=== PATIENT | female | born 1980 | race Two or more races ===

== ENCOUNTER 2024-01-04 17:49 | Outpatient (CLI) | payer OTHER ==
[~2024-01-04] VITALS: Ht 162.6 cm; Wt 113.4 kg
[2024-01-04 16:47] VITALS: BP 128/74
[2024-01-04] MEDS ORDERED: LABETALOL HCL 200 MG TABLET PO SCH (18:02)
[2024-01-04] MEDS ORDERED: RINGERS SOLUTION,LACTATED 1,000 ML IV SCH (18:15)
[2024-01-04] MEDS ORDERED: INTEGRA PLUS C1 EACH PO (19:32)
[2024-01-04] MEDS ORDERED: PRENATAL TABLE1 EAC1 PO (19:33)
[2024-01-04] MEDS ORDERED: LABETALOL HCL200 MG PO (19:33)
[2024-01-04 20:49] VITALS: BP 135/80; O2SAT 99
[2024-01-04 23:30] VITALS: BP 136/83
[2024-01-05 03:04] VITALS: BP 140/81
[2024-01-05 09:40] VITALS: BP 124/66
== END 2024-01-05 10:05 | disposition home or self-care (01) ==
LOC: OBS/DEL 17:49
PROVIDERS: ATTEND Obstetrics & Gynecology
DX: O16.2 Unspecified maternal hypertension, second trimester (principal); Z3A.23 23 weeks gestation of pregnancy

== ENCOUNTER 2024-03-03 11:56 | Outpatient (CLI) | payer OTHER | END 2024-03-03 11:57 | disposition home or self-care (01) | LOC: SONOGRAMA 11:56 | PROVIDERS: ATTEND Obstetrics & Gynecology Maternal & Fetal Medicine | DX: N64.0 Fissure and fistula of nipple (principal) ==

== ENCOUNTER → 2024-03-03 | Outpatient (CLI) | payer OTHER ==
[~2024-03-03] MED LIST: INTEGRA PLUS C1 EACH PO; LABETALOL HCL200 MG PO; PRENATAL TABLE1 EAC1 PO
== END | disposition home or self-care (01) ==
LOC: NST 10:56
PROVIDERS: ATTEND Obstetrics & Gynecology Maternal & Fetal Medicine
DX: Z34.83 Encounter for supervision of other normal pregnancy, third trimester (principal)

== ENCOUNTER 2024-03-09 17:34 | Emergency (ER) | payer OTHER ==
[~2024-03-09] VITALS: Ht 162.6 cm; Wt 117.9 kg
[2024-03-09] MEDS ORDERED: DEXAMETHASONE SODIUM PHOSPHATE 4 MG/ML VIAL IM ONE (19:45)
[2024-03-09] MEDS ORDERED: AZITHROMYCIN 500 MG TABLET PO ONE (19:45)
[2024-03-09] MEDS ORDERED: HYDROCODONE/CHLORPHEN P-STIREX 5 ML ML PO ONE (19:45)
[2024-03-09 19:59] LABS: HEMATOCRIT 28.1 % (36.0-45.00); HEMOGLOBIN 9.3 g/dL (12.0-15.00); MEAN CELL VOLUME 80.9 fL (80.00-100.00); MEAN CORPUSCULAR HEMOGLOBIN 26.7 pg (27.00-32.0); MEAN CORPUSCULAR HGB CONC 33.1 g/dl (32.0-36.0); PLATELET COUNT 361 K/uL (150-450); RED BLOOD COUNT 3.48 M/uL (4.00-6.00); RED CELL DISTRIBUTION WIDTH 15.1 % (11.5-14.5)
[2024-03-09] MEDS ORDERED: ZITHROMAX500 MG PO (20:51)
[2024-03-09] MEDS ORDERED: XOPENEX CO1.25 MG/0. IH (20:51)
[2024-03-09] MEDS ORDERED: TUSSIN100 MG/51 PO (20:51)
== END 2024-03-09 20:54 | disposition home or self-care (01) ==
LOC: ER 17:36
PROVIDERS: General Practice
DX: R05.9 Cough, unspecified (principal); M54.9 Dorsalgia, unspecified; Z20.822 Contact with and (suspected) exposure to COVID-19

== ENCOUNTER 2024-03-11 11:46 | Inpatient (IN) | payer OTHER ==
[~2024-03-11] VITALS: Ht 162.6 cm; Wt 117.9 kg
[~2024-03-11 11:46] MED LIST changes: +TUSSIN100 MG/51 PO; +XOPENEX CO1.25 MG/0. IH; +ZITHROMAX500 MG PO
--- NOTE | 2024-03-11 12:08 | NUR ---
PACIENTE FEMENINA ALERTA Y ORIENTADA X3, REFIERE DIFICULTAD AL RESPIRAR AL MOEMNTO DEL TRIAGE MOE O2 ES 97%, TIENE 33 SEMANAS DE EMBARAZO Y MOE GINECOLOGO ES .
[2024-03-11] MEDS ORDERED: LEVALBUTEROL HCL 1.25 MG/3 ML SOLUTION IH STA (14:54)
--- NOTE | 2024-03-11 15:24 | NUR ---
SE EDUCA A PTE SOBRE TX A RECIBIR EN EL AREA LA MISMA REFIERE ENTENDER. SE LLAMA A PERSONAL DE TERAPIA RESPIRATORIA CUAL RUVALCABA REFIERE ESTAR NOTIFICADO. SE REALIZAN MUESTRAS DE LAB Y SE ENVIAN DE FORMA INMEDIATA. SE NABIL COLECTOR DE ORINA A PTE Y SE EDUCA SOBRE ENTREGAR EL MISMO. SE REALIZAN VITALES POR RESPIRACION DE PACIENTE, SATURACION 97%.
[2024-03-11 15:27] LABS: HEMATOCRIT 28.7 % (36.0-45.00); HEMOGLOBIN 9.2 g/dL (12.0-15.00); MEAN CELL VOLUME 80.4 fL (80.00-100.00); MEAN CORPUSCULAR HEMOGLOBIN 25.9 pg (27.00-32.0); MEAN CORPUSCULAR HGB CONC 32.2 g/dl (32.0-36.0); PLATELET COUNT 360 K/uL (150-450); RED BLOOD COUNT 3.57 M/uL (4.00-6.00); RED CELL DISTRIBUTION WIDTH 15.6 % (11.5-14.5)
[2024-03-11 16:27] LABS: URINE APPEARANCE Clear; URINE BILIRRUBIN Negative (NEGATIVE); URINE BLOOD Negative; URINE COLOR Yellow; URINE GLUCOSE Negative (NEGATIVE); URINE KETONE Negative (NEGATIVE); URINE LEUKOCYTE Moderate; URINE NITRATE Negative; URINE PROTEIN 30 (NEGATIVE); URINE UROBILINOGEN 0.2 E.U./dl
[2024-03-11 16:31] LABS: URINE EPITHELIAL CELLS 30.7 uL (0.0-38.8); URINE RBC 2.6 uL (0.0-20.8); URINE WBC 377.2 uL (0.0-23.2)
[2024-03-11 17:01] LABS: URINE CAST 0.44 uL (0.0-1.40)
[2024-03-11] MEDS ORDERED: CEPHALEXIN500 M1 PO (17:50)
[2024-03-13 02:12] VITALS: BP 158/98
[2024-03-13] MEDS ORDERED: MAGNESIUM SULFATE IN WATER 4 GM/100 ML PIGGYBACK IV SCH (02:45)
[2024-03-13] MEDS ORDERED: LABETALOL HCL 20MG/4ML SYRINGE IV ONE (02:45)
[2024-03-13] MEDS ORDERED: MAGNESIUM SULFATE IN WATER 0.04 GM/ML IV.SOLN IV SCH (02:45)
[2024-03-13 03:13] LABS: HEMATOCRIT 28.6 % (36.0-45.00); HEMOGLOBIN 9.5 g/dL (12.0-15.00); MEAN CELL VOLUME 78.9 fL (80.00-100.00); MEAN CORPUSCULAR HEMOGLOBIN 26.1 pg (27.00-32.0); PLATELET COUNT 380 K/uL (150-450); RED BLOOD COUNT 3.63 M/uL (4.00-6.00); RED CELL DISTRIBUTION WIDTH 15.4 % (11.5-14.5)
[2024-03-13] MEDS ORDERED: AMPICILLIN SODIUM 2,000 MG VIAL IV ONE (03:30)
[2024-03-13] MEDS ORDERED: RINGERS SOLUTION,LACTATED 1,000 ML IV SCH (03:30)
[2024-03-13] MEDS ORDERED: MAGNESIUM SULFATE IN WATER 500 ML IV SCH (03:30)
[2024-03-13 03:31] LABS: INR 0.96; PARTIAL THROMBOPLASTIN TIME 28.7 SECONDS (22.0-34.0); PROTHROMBIN TIME 10.5 SECONDS (9.0-11.5)
[2024-03-13 03:36] LABS: ALBUMIN 2.4 gm/dL (3.4-5.0); BILIRUBIN TOTAL 0.35 mg/dL (0.3-1.2); CALCIUM 8.5 mg/dL (8.5-10.1); CREATININE SERUM 0.63 mg/dL (0.55-1.02); GFR 103.14; POTASSIUM 3.81 mEq/L (3.5-5.1); TOTAL PROTEIN 6.4 gm/dL (6.4-8.2)
[2024-03-13] MEDS ORDERED: INTEGRA F CAPS1 EACH PO (03:41)
[2024-03-13] MEDS ORDERED: LABETALOL HCL100 MG PO (03:41)
[2024-03-13] MEDS ORDERED: PROAIR RESPICL90 MCG IH (03:42)
[2024-03-13] MEDS ORDERED: AZITHROMYCIN500 MG PO (03:42)
[2024-03-13 03:43] LABS: PH,URINE 6.5 (5.0-8.0); URINE APPEARANCE Clear; URINE BILIRRUBIN Negative (NEGATIVE); URINE BLOOD Large; URINE COLOR Yellow; URINE GLUCOSE Negative (NEGATIVE); URINE KETONE Negative (NEGATIVE); URINE LEUKOCYTE Trace; URINE NITRATE Negative; URINE PROTEIN Negative (NEGATIVE); URINE UROBILINOGEN 0.2 E.U./dl
[2024-03-13] MEDS ORDERED: PRENATA CHEWAB1 EACH PO (03:44)
[2024-03-13] MEDS ORDERED: MORPHINE SULFATE 4 MG/ML CARTRIDGE IV PRN (03:45)
[2024-03-13 03:46] LABS: URINE BACTERIA 111.3 uL (0.0-1933); URINE EPITHELIAL CELLS 16.7 uL (0.0-38.8); URINE RBC 81.7 uL (0.0-20.8); URINE WBC 27.8 uL (0.0-23.2)
[2024-03-13 03:48] LABS: URINE CAST 0.73 uL (0.0-1.40)
[2024-03-13 06:02] LABS: ABG PO2 82.6 mmHg (80-100); ABG pCO2 27.7 mmHg (35-45); SaO2 96.5 %
[2024-03-13 06:03] LABS: BASE EXCESS -3.6 mmol/l; BICARBONATE 18.8 mmol/l (23-25); Tco2 19.7 mmol/l; allen test SATISFACTORY; o2 21 %; puncture site RADIAL LEFT
[2024-03-13 06:13] VITALS: BP 138/76; O2SAT 99
[2024-03-13 07:51] VITALS: O2SAT 100
[2024-03-13] MEDS ORDERED: AMPICILLIN SODIUM 1,000 MG VIAL IV SCH (08:00)
[2024-03-13] MEDS ORDERED: AZITHROMYCIN 500 MG VIAL IV NR (09:00)
[2024-03-13] MEDS ORDERED: BETAMETHASONE ACETATE,SOD PHOS 30 MG/5 ML ML IM SCH (09:00)
[2024-03-13] MEDS ORDERED: [UNRECOGNIZED DRUG - OTHER] (09:22)
[2024-03-13 10:55] VITALS: BP 158/90; O2SAT 97
[2024-03-13] MEDS ORDERED: GUAIFENESIN 200 MG/10 ML BLIST.PACK PO SCH (12:00)
[2024-03-13 15:42] VITALS: BP 142/88
[2024-03-13] MEDS ORDERED: CEFTRIAXONE SODIUM 2,000 MG VIAL IV STA (17:45)
[2024-03-13] MEDS ORDERED: LEVALBUTEROL HCL 0.63 MG/3 ML SOLUTION IH SCH (18:37)
[2024-03-13 20:00] VITALS: BP 160/92
[2024-03-13] MEDS ORDERED: LABETALOL HCL 200 MG TABLET PO SCH (23:16)
[2024-03-14] VITALS (7 sets, daily range): BP systolic 110–154; BP diastolic 72–91; O2SAT 96–100
[2024-03-14] MEDS ORDERED: SOD FERRIC GLUC COMPLX/SUCROSE 125 MG in 0.9 % SODIUM CHLORIDE 100 ML IV SCH (07:44)
[2024-03-14] MEDS ORDERED: METRONIDAZOLE/SODIUM CHLORIDE 100 ML IV SCH (17:00)
[2024-03-14] MEDS ORDERED: CEFTRIAXONE SODIUM 2,000 MG VIAL IV SCH (17:00)
[2024-03-14] MEDS ORDERED: AZITHROMYCIN 500 MG VIAL IV SCH (17:00)
[2024-03-14 19:11] LABS: HEMATOCRIT 29.2 % (36.0-45.00); HEMOGLOBIN 9.5 g/dL (12.0-15.00); MEAN CELL VOLUME 80.7 fL (80.00-100.00); MEAN CORPUSCULAR HEMOGLOBIN 26.2 pg (27.00-32.0); MEAN CORPUSCULAR HGB CONC 32.5 g/dl (32.0-36.0); PLATELET COUNT 464 K/uL (150-450); RED BLOOD COUNT 3.62 M/uL (4.00-6.00); RED CELL DISTRIBUTION WIDTH 15.2 % (11.5-14.5)
[2024-03-14 19:13] LABS: URINE APPEARANCE Clear; URINE BILIRRUBIN Negative (NEGATIVE); URINE BLOOD Negative; URINE COLOR Yellow; URINE GLUCOSE Negative (NEGATIVE); URINE KETONE Negative (NEGATIVE); URINE LEUKOCYTE Negative; URINE NITRATE Negative; URINE PROTEIN Negative (NEGATIVE); URINE UROBILINOGEN 0.2 E.U./dl
[2024-03-14 19:17] LABS: URINE EPITHELIAL CELLS 2.5 uL (0.0-38.8); URINE RBC 3.3 uL (0.0-20.8)
[2024-03-14 19:36] LABS: URINE BACTERIA 3.6 uL (0.0-1933); URINE CAST 0.14 uL (0.0-1.40); URINE WBC 0.6 uL (0.0-23.2)
[2024-03-14 19:41] LABS: ALBUMIN 2.5 gm/dL (3.4-5.0); BILIRUBIN TOTAL 0.16 mg/dL (0.3-1.2); CALCIUM 7.8 mg/dL (8.5-10.1); CREATININE SERUM 0.73 mg/dL (0.55-1.02); GFR 87.01; GLOBULINA 4.2 G/DL (2.4-3.5); POTASSIUM 4.45 mEq/L (3.5-5.1); TOTAL PROTEIN 6.7 gm/dL (6.4-8.2); URIC ACID 6.4 mg/dL (2.5-7.5)
[2024-03-14] MEDS ORDERED: hydrOXYzine PAMOATE 50 MG CAPSULE PO ONE (21:15)
[2024-03-15] MEDS ORDERED: LABETALOL HCL 100 MG/20 ML ML IV PUSH ONE ×2 (03:15→17:15)
[2024-03-15 06:11] LABS: PH,URINE 5.5 (5.0-8.0); URINE APPEARANCE Clear; URINE BILIRRUBIN Negative (NEGATIVE); URINE BLOOD Negative; URINE COLOR Yellow; URINE GLUCOSE Negative (NEGATIVE); URINE KETONE Negative (NEGATIVE); URINE LEUKOCYTE Negative; URINE NITRATE Negative; URINE PROTEIN 30 (NEGATIVE)
[2024-03-15 06:14] LABS: URINE BACTERIA 7.3 uL (0.0-1933); URINE CAST 3.53 uL (0.0-1.40); URINE EPITHELIAL CELLS 12.8 uL (0.0-38.8); URINE RBC 28.7 uL (0.0-20.8); URINE WBC 6.3 uL (0.0-23.2)
[2024-03-15 06:15] VITALS: BP 143/96; O2SAT 97
[2024-03-15] MEDS ORDERED: CEFAZOLIN SODIUM 1,000 MG VIAL IV SCH (08:30)
[2024-03-15 11:12] VITALS: BP 143/84
[2024-03-15] MEDS ORDERED: MORPHINE SULFATE 4 MG/ML VIAL IV PRN (16:45)
[2024-03-15] MEDS ORDERED: MAGNESIUM SULFATE IN WATER 500 ML IV SCH (16:45)
[2024-03-15] MEDS ORDERED: MORPHINE SULFATE 4 MG/ML VIAL IV ONE ×2 (17:15→17:45)
[2024-03-15] MEDS ORDERED: hydrALAZINE HCL 25 MG TABLET PO SCH (17:37)
[2024-03-15] MEDS ORDERED: CLEVIDIPINE BUTYRATE 100 ML IV SCH (17:45)
[2024-03-15] MEDS ORDERED: KETOROLAC TROMETHAMINE 30 MG VIAL IV SCH (18:00)
[2024-03-15] MEDS ORDERED: KETOROLAC TROMETHAMINE 30 MG VIAL IV ONE (18:15)
[2024-03-15] MEDS ORDERED: LOSARTAN POTASSIUM 25 MG TABLET PO SCH (21:17)
[2024-03-16] MEDS ORDERED: METOPROLOL SUCCINATE 25 MG TAB.SR.24H PO SCH (09:00)
[2024-03-16 09:17] VITALS: BP 143/82; O2SAT 99
[2024-03-16 11:03] VITALS: BP 143/80; O2SAT 100
[2024-03-16 15:45] VITALS: BP 148/80; O2SAT 98
[2024-03-16] MEDS ORDERED: ERYTHROMYCIN BASE OPHT 1GM EACH TUBE OP ONE (15:45)
[2024-03-16] MEDS ORDERED: OXYTOCIN 10 UNITS/ML VIAL IV ONE (15:45)
[2024-03-16] MEDS ORDERED: ENOXAPARIN SODIUM 40 MG/0.4 ML SYRINGE SUBCUTANEO SCH (17:00)
[2024-03-16 19:43] LABS: PH,URINE 5.5 (5.0-8.0); URINE APPEARANCE Clear; URINE BILIRRUBIN Negative (NEGATIVE); URINE BLOOD Negative; URINE COLOR Yellow; URINE GLUCOSE Negative (NEGATIVE); URINE KETONE Negative (NEGATIVE); URINE LEUKOCYTE Negative; URINE NITRATE Negative; URINE PROTEIN Negative (NEGATIVE); URINE UROBILINOGEN 0.2 E.U./dl
[2024-03-16 19:46] LABS: URINE BACTERIA 17.1 uL (0.0-1933); URINE EPITHELIAL CELLS 3.7 uL (0.0-38.8); URINE RBC 4.2 uL (0.0-20.8); URINE WBC 1.8 uL (0.0-23.2)
[2024-03-16 19:48] LABS: URINE CAST 0.73 uL (0.0-1.40)
[2024-03-16 20:02] VITALS: BP 117/81
[2024-03-16 20:08] LABS: ALBUMIN 2.4 gm/dL (3.4-5.0); BILIRUBIN TOTAL 0.2 mg/dL (0.3-1.2); CALCIUM 7.6 mg/dL (8.5-10.1); CREATININE SERUM 0.75 mg/dL (0.55-1.02); GFR 84.34; GLOBULINA 3.8 G/DL (2.4-3.5); POTASSIUM 4.19 mEq/L (3.5-5.1); TOTAL PROTEIN 6.2 gm/dL (6.4-8.2)
[2024-03-16 20:10] LABS: HEMATOCRIT 27.3 % (36.0-45.00); MEAN CELL VOLUME 79.6 fL (80.00-100.00); MEAN CORPUSCULAR HEMOGLOBIN 26.1 pg (27.00-32.0); MEAN CORPUSCULAR HGB CONC 32.8 g/dl (32.0-36.0); PLATELET COUNT 403 K/uL (150-450); RED BLOOD COUNT 3.43 M/uL (4.00-6.00); RED CELL DISTRIBUTION WIDTH 15.5 % (11.5-14.5)
[2024-03-16 23:19] VITALS: BP 145/76
[2024-03-17 03:43] VITALS: BP 144/72
[2024-03-17 06:05] VITALS: BP 153/93; O2SAT 98
[2024-03-17 06:50] LABS: HEMATOCRIT 24.6 % (36.0-45.00); MEAN CELL VOLUME 79.4 fL (80.00-100.00); PLATELET COUNT 376 K/uL (150-450); RED BLOOD COUNT 3.09 M/uL (4.00-6.00); RED CELL DISTRIBUTION WIDTH 15.3 % (11.5-14.5)
[2024-03-17 06:56] LABS: HEMOGLOBIN 8.3 g/dL (12.0-15.00); MEAN CORPUSCULAR HEMOGLOBIN 26.8 pg (27.00-32.0)
[2024-03-17 07:23] LABS: ALBUMIN 2.3 gm/dL (3.4-5.0); BILIRUBIN TOTAL 0.22 mg/dL (0.3-1.2); CALCIUM 7.7 mg/dL (8.5-10.1); CREATININE SERUM 0.71 mg/dL (0.55-1.02); GFR 89.85; GLOBULINA 3.4 G/DL (2.4-3.5); MAGNESIUM 3.1 mg/dL (1.8-2.4); PHOSPHOROUS 4.9 mg/dL (2.5-4.9); POTASSIUM 4.04 mEq/L (3.5-5.1); TOTAL PROTEIN 5.7 gm/dL (6.4-8.2)
[2024-03-17 07:28] LABS: C-REACTIVE PROTEIN 3.54 MG/DL (0.00-0.29)
[2024-03-17 07:30] VITALS: BP 154/79
[2024-03-17] MEDS ORDERED: Calcium Carbonate 1250 MG/5 ML PO SCH (09:00)
[2024-03-17] MEDS ORDERED: Calcium Carbonate 1 TAB TABLET PO SCH (10:15)
[2024-03-17 11:00] VITALS: BP 149/88; O2SAT 98
[2024-03-17] MEDS ORDERED: LOSARTAN POTASSIUM 50 MG TABLET PO SCH (13:49)
[2024-03-17 16:02] VITALS: BP 160/80; O2SAT 97
[2024-03-18] MEDS ORDERED: LABETALOL HCL 100 MG/20 ML ML IV PUSH ONE (00:45)
[2024-03-18 00:49] VITALS: BP 170/110; O2SAT 99
[2024-03-18 05:18] VITALS: BP 111/81; O2SAT 100
[2024-03-18 08:23] VITALS: BP 150/75; O2SAT 97
[2024-03-18] MEDS ORDERED: hydrALAZINE HCL 50 MG TABLET PO SCH ×2 (09:00→13:00)
[2024-03-18] MEDS ORDERED: ACETAMINOPHEN WITH CODEINE 1 UDTAB TABLET PO SCH (12:00)
[2024-03-18 18:00] VITALS: BP 145/69
[2024-03-18] MEDS ORDERED: hydrALAZINE HCL 50 MG,hydrALAZINE HCL 25 MG PO SCH (21:00)
[2024-03-19 00:20] VITALS: BP 133/81
[2024-03-19 06:39] VITALS: BP 140/83; O2SAT 96
[2024-03-19 07:59] VITALS: BP 175/80
[2024-03-19] MEDS ORDERED: IRON FUM,PS/FOLIC/BCOMP,C NO.9 1 CAP CAPSULE PO SCH (09:00)
[2024-03-19 15:03] VITALS: BP 162/95
[2024-03-19] MEDS ORDERED: LOSARTAN POTASSIUM 50 MG TABLET PO SCH (17:00)
[2024-03-20 00:39] VITALS: BP 138/84; O2SAT 93
[2024-03-20 06:48] LABS: HEMATOCRIT 26.6 % (36.0-45.00); MEAN CORPUSCULAR HEMOGLOBIN 30.1 pg (27.00-32.0); MEAN CORPUSCULAR HGB CONC 33.8 g/dl (32.0-36.0); PLATELET COUNT 238 K/uL (150-450); RED BLOOD COUNT 2.99 M/uL (4.00-6.00); RED CELL DISTRIBUTION WIDTH 14.3 % (11.5-14.5)
[2024-03-20 07:26] LABS: BILIRUBIN TOTAL 0.42 mg/dL (0.3-1.2); CALCIUM 8.9 mg/dL (8.5-10.1); CREATININE SERUM 0.64 mg/dL (0.55-1.02); GFR 101.28; GLOBULINA 3.2 G/DL (2.4-3.5); POTASSIUM 3.95 mEq/L (3.5-5.1); TOTAL PROTEIN 5.2 gm/dL (6.4-8.2)
[2024-03-20 08:12] VITALS: BP 128/83; O2SAT 98
[2024-03-21] MEDS ORDERED: METOPROLOL SUCCINATE 50 MG TAB.SR.24H PO SCH (09:00)
== END 2024-03-20 14:20 | disposition home or self-care (01) | DRG 787 ==
LOC: ER 11:48 → LDR 03-13 02:32 → OB/GYN 03-15 16:56 → LDR 03-16 09:51 → OB/GYN 03-17 09:20
PROVIDERS: Internal Medicine Infectious Disease; Obstetrics & Gynecology; ADMIT Obstetrics & Gynecology Gynecology; ATTEND Obstetrics & Gynecology Gynecology
PROC: 4A033R1 Measurement of Arterial Saturation, Peripheral, Percutaneous Approach (ICD-10-PCS; 2024-03-13)
PROC: B246ZZZ Ultrasonography of Right and Left Heart (ICD-10-PCS; 2024-03-13)
PROC: 3E0F7GC Introduction of Other Therapeutic Substance into Respiratory Tract, Via Natural or Artificial Opening (ICD-10-PCS; 2024-03-13)
PROC: 4A1HXCZ Monitoring of Products of Conception, Cardiac Rate, External Approach (ICD-10-PCS; 2024-03-13)
PROC: 10D00Z1 Extraction of Products of Conception, Low, Open Approach (ICD-10-PCS; principal; 2024-03-15 15:30)
DX: O99.214 Obesity complicating childbirth (principal); I42.0 Dilated cardiomyopathy; I50.22 Chronic systolic (congestive) heart failure; O99.52 Diseases of the respiratory system complicating childbirth; O60.14X0 Preterm labor third trimester with preterm delivery third trimester, not applicable or unspecified; E66.01 Morbid (severe) obesity due to excess calories; O42.013 Preterm premature rupture of membranes, onset of labor within 24 hours of rupture, third trimester; O14.94 Unspecified pre-eclampsia, complicating childbirth; O99.42 Diseases of the circulatory system complicating childbirth; Z3A.33 33 weeks gestation of pregnancy; Z37.0 Single live birth; I34.0 Nonrheumatic mitral (valve) insufficiency; I27.21 Secondary pulmonary arterial hypertension; J45.909 Unspecified asthma, uncomplicated; R05.9 Cough, unspecified; O75.89 Other specified complications of labor and delivery

== ENCOUNTER 2024-03-23 14:08 | Outpatient (CLI) | payer OTHER ==
[~2024-03-23 14:08] MED LIST changes: +AZITHROMYCIN500 MG PO; +CEPHALEXIN500 M1 PO; +INTEGRA F CAPS1 EACH PO; +LABETALOL HCL100 MG PO; +PRENATA CHEWAB1 EACH PO; +PROAIR RESPICL90 MCG IH; +[UNRECOGNIZED DRUG - OTHER]
== END 2024-03-23 14:13 | disposition home or self-care (01) ==
LOC: RAD 14:08
DX: M54.6 Pain in thoracic spine (principal)

== ENCOUNTER 2024-03-31 07:58 | Outpatient (CLI) | payer OTHER | END 2024-03-31 08:03 | disposition home or self-care (01) | LOC: MAMO-SONO 07:58 | PROVIDERS: ATTEND Surgery | DX: N60.22 Fibroadenosis of left breast (principal); N60.11 Diffuse cystic mastopathy of right breast; N60.12 Diffuse cystic mastopathy of left breast ==

== ENCOUNTER 2024-05-12 06:00 | Day surgery (SDC) | payer OTHER ==
[2024-05-10 09:20] LABS: HEMATOCRIT 32.2 % (36.0-45.00); HEMOGLOBIN 11.5 g/dL (12.0-15.00); MEAN CELL VOLUME 79.2 fL (80.00-100.00); MEAN CORPUSCULAR HEMOGLOBIN 28.2 pg (27.00-32.0); MEAN CORPUSCULAR HGB CONC 35.6 g/dl (32.0-36.0); PLATELET COUNT 340 K/uL (150-450); RED BLOOD COUNT 4.06 M/uL (4.00-6.00); RED CELL DISTRIBUTION WIDTH 16.2 % (11.5-14.5)
[2024-05-10 09:28] LABS: PH,URINE 5.5 (5.0-8.0); URINE APPEARANCE Clear; URINE BILIRRUBIN Negative (NEGATIVE); URINE BLOOD Negative; URINE COLOR Yellow; URINE KETONE Negative (NEGATIVE); URINE LEUKOCYTE Negative; URINE NITRATE Negative; URINE PROTEIN Negative (NEGATIVE); URINE UROBILINOGEN 0.2 E.U./dl
[2024-05-10 09:32] LABS: URINE BACTERIA 117.4 uL (0.0-1933); URINE EPITHELIAL CELLS 4.7 uL (0.0-38.8); URINE WBC 3.7 uL (0.0-23.2)
[2024-05-10 09:35] LABS: URINE GLUCOSE >=1000 MG/DL (NEGATIVE); URINE RBC 1.7 uL (0.0-20.8)
[2024-05-10 09:49] LABS: INR 0.96; PARTIAL THROMBOPLASTIN TIME 31.4 SECONDS (22.0-34.0)
[2024-05-10 10:09] LABS: ALBUMIN 3.7 gm/dL (3.4-5.0); BILIRUBIN TOTAL 0.28 mg/dL (0.3-1.2); CALCIUM 8.9 mg/dL (8.5-10.1); CREATININE SERUM 0.6 mg/dL (0.55-1.02); GFR 109.11; GLOBULINA 3.6 G/DL (2.4-3.5); POTASSIUM 4.12 mEq/L (3.5-5.1); TOTAL PROTEIN 7.3 gm/dL (6.4-8.2)
[2024-05-10 10:26] LABS: PROTHROMBIN TIME 10.5 SECONDS (9.0-11.5)
[2024-05-10 11:08] LABS: CHOL HDL RATIO 4.5 (0-5.0); TSH 1.46 uIU/mL (0.358-3.74)
[2024-05-10 11:38] VITALS: BP 121/73
[~2024-05-12] VITALS: Ht 162.6 cm; Wt 103.4 kg
[~2024-05-12 06:00] MED LIST changes: +HYDRALAZINE HCL50 MG PO; +JARDIANCE10 MG PO; +LOZARTAN 50MG; +METOPROLOL SUCC50 MG PO
[2024-05-12] MEDS ORDERED: CEFAZOLIN SODIUM 1,000 MG VIAL ONE (08:39)
[2024-05-12] MEDS ORDERED: CHLORHEXIDINE GLUCONATE 120 ML BOTTLE TOP ONE (08:39)
[2024-05-12] MEDS ORDERED: MORPHINE SULFATE 4 MG/ML VIAL IV ONE (11:40)
== END 2024-05-12 14:05 | disposition home or self-care (01) ==
LOC: CIR.AMB 06:00
PROVIDERS: Internal Medicine; ATTEND Surgery
DX: D48.62 Neoplasm of uncertain behavior of left breast (principal); D24.2 Benign neoplasm of left breast; I10 Essential (primary) hypertension

== ENCOUNTER → 2024-12-28 12:04 | Outpatient (CLI) | payer OTHER ==
[2024-12-28 12:48] LABS: BASO % 0.5 % (0.1-1.2); EOS # 0.08 (0.04-0.54); EOS % 0.9 % (0.7-7.0); LYMPH # 2.18 (1.18-3.74); LYMPH % 25.7 % (19.3-53.1); MEAN PLATELET VOLUME 10.70 fl (9.4-12.4); MONO # 0.48 (0.24-0.82); MONO % 5.7 % (4.7-12.5); NEUT # 5.69 (1.56-6.13); NEUT % 67.0 % (34.0-71.1); RED CELL DISTRIBUTION WIDTH 13.4 % (11.6-14.4)
[2024-12-28 13:12] LABS: INR 1.01
[2024-12-28 13:28] LABS: ALT/SGPT 18.0 U/L (12-78); AST/SGOT 6.0 U/L (15-37); BILIRUBIN TOTAL 0.43 mg/dL (0.3-1.2); BUN CREA RATIO 18.0 (7.0-25.0); CHOL HDL RATIO 3.3 (0-5.0); CREATININE SERUM 0.5 mg/dL (0.55-1.02); GFR 134.66; GLOBULINA 3.5 G/DL (2.4-3.5); GLUCOSE FASTING 84.0 mg/dL (65-100); HDL 53.0 mg/dl (40-60); LDL 107.0 mg/dl (0-130); OSMOLALITY SERUM 277.0 MOSM/KG (275-295); TSH 0.612 uIU/mL (0.358-3.74); VLDL 16.0 (0-39)
== END | disposition home or self-care (01) ==
LOC: LAB 12:04
PROVIDERS: ATTEND Internal Medicine
DX: D64.9 Anemia, unspecified (principal); R10.9 Unspecified abdominal pain; E03.9 Hypothyroidism, unspecified; E78.5 Hyperlipidemia, unspecified; R73.09 Other abnormal glucose; I50.22 Chronic systolic (congestive) heart failure; Z79.01 Long term (current) use of anticoagulants